=== PATIENT | female | born 1995 | race Native Hawaiian/Other Pacific Islander ===

== ENCOUNTER 2017-07-27 10:50 | Emergency (ER) | payer OTHER ==
[~2017-07-27] VITALS: Ht 162.6 cm; Wt 71.8 kg
[2017-07-27] MEDS ORDERED: PREDNISONE20 MG PO (11:42)
[2017-07-27 11:50] VITALS: BP 127/60; PULSE 76; TEMP 98.6
== END 2017-07-27 11:56 | disposition home or self-care (01) ==
LOC: COL.ER 10:50
DX: M54.12 Radiculopathy, cervical region (principal)